=== PATIENT | female | born 1965 | race Caucasian/White ===

== ENCOUNTER → 2025-01-13 08:53 | Outpatient (REF) | payer OTHER, SELFPAY | LOC: RAD 08:53 | PROVIDERS: ATTENDING PHYSICIAN Internal Medicine Hematology & Oncology; FAMILY PHYSICIAN Family Medicine | DX: Z78.0 Asymptomatic menopausal state (principal); C50.912 Malignant neoplasm of unspecified site of left female breast | CPT/HCPCS: 77080 ==

== ENCOUNTER → 2025-03-09 09:14 | Outpatient (REF) | payer SELFPAY | LOC: HWRAD 09:14 | PROVIDERS: ATTENDING PHYSICIAN Internal Medicine Cardiovascular Disease; FAMILY PHYSICIAN Family Medicine | DX: I25.10 Atherosclerotic heart disease of native coronary artery without angina pectoris (principal) | CPT/HCPCS: 75571 ==

== ENCOUNTER → 2025-03-09 09:19 | Outpatient (REF) | payer OTHER, SELFPAY ==
[2025-03-09 12:18] LABS: Hematocrit 38.9 % (37.0-47.0); Hemoglobin 13.1 g/dL (12.0-16.0); Mean Corp Hgb Conc. 33.7 g/dL (33.0-37.0); Mean Corpuscular Volume 89.8 fL (81.0-99.0); Nucleated Red Blood Cells % 0 %; Platelet Count 228 10^3/uL (130-400); Red Cell Dist. Width 11.7 % (11.5-14.5)
[2025-03-09 12:25] LABS: ALT (SGPT) 24 U/L (0-35); AST (SGOT) 32 U/L (14-36); Albumin 4.6 g/dl (3.5-5.0); Alkaline Phosphatase 97 U/L (38-126); Blood Urea Nitrogen 15 mg/dl (7-17); Calcium 9.6 mg/dl (8.4-10.2); Carbon Dioxide 27 mmol/L (22-30); Chloride 106 mmol/L (98-107); Glucose 83 mg/dl (70-99); Potassium 4.2 mmol/L (3.5-5.1); Sodium 139 mmol/L (135-145); Total Protein 7.3 g/dl (6.3-8.2); eGFR > 60.00
[2025-03-09 12:30] LABS: C-Reactive Protein < 5.00 mg/L (0.0-10.00)
[2025-03-09 12:46] LABS: Vitamin D, 25-OH*** 60.1 ng/mL (30-80)
[2025-03-09 13:00] LABS: TSH 3.59 uIU/ml (0.47-4.68)
[2025-03-11 00:48] LABS: Lipoprotein a (Lp a) 86 mg/dL (<=29)
== END ==
LOC: HWLAB 09:19
PROVIDERS: ATTENDING PHYSICIAN Family Medicine
DX: Z15.01 Genetic susceptibility to malignant neoplasm of breast (principal); Z15.09 Genetic susceptibility to other malignant neoplasm; H91.93 Unspecified hearing loss, bilateral; Z80.8 Family history of malignant neoplasm of other organs or systems; Z01.89 Encounter for other specified special examinations
CPT/HCPCS: 36415; 80053; 82306; 83695; 83704; 84443; 85025; 86140